=== PATIENT | female | born 1935 | race Caucasian/White ===

== ENCOUNTER 2023-07-31 23:31 | Emergency (ER) | payer MEDICARE, OTHER ==
[~2023-07-31] VITALS: Ht 162.6 cm; Wt 61.2 kg
[2023-08-01] MEDS ORDERED: MORPHINE SULFATE 2 MG/1 ML DISP.SYRIN ONE (00:25)
[2023-08-01] MEDS ORDERED: LORAZEPAM 2 MG/1 ML VIAL ONE (00:26)
[2023-08-01] MEDS: LORAZEPAM 2 MG/1 ML VIAL IV ONE (00:31)
[2023-08-01] MEDS: MORPHINE SULFATE 2 MG/1 ML DISP.SYRIN IV ONE (00:32)
[2023-08-01 00:40] LABS: RED CELL DISTRIBUTION WIDTH 15.2 % (12.3-17.7)
[2023-08-01 00:49] LABS: BASOPHILS # (AUTO) 0.1 K/UL (0.0-0.2); BASOPHILS % (AUTO) 0.9 % (0.0-2.0); DIFFERENTIAL COMMENT 0; EOSINOPHILS # (AUTO) 0.1 K/uL (0.0-0.7); EOSINOPHILS % (AUTO) 1.1 % (0.0-7.0); HEMATOCRIT 34.8 % (31.2-41.9); LYMPHOCYTES # (AUTO) 2.8 K/uL (0.8-4.8); MEAN CORPUSCULAR HEMOGLOBIN 31.7 uug (24.7-32.8); MEAN CORPUSCULAR HGB CONC 35 g/dL (32.3-35.6); MEAN CORPUSCULAR VOLUME 92.1 fL (75.5-95.3); MONOCYTES # (AUTO) 0.6 K/uL (0.1-1.30); NEUTROPHILS # (AUTO) 5.9 K/uL (1.8-8.9); PLATELET COUNT (AUTO) 302 K/uL (179-408); RED BLOOD CELL COUNT(AUTO) 3.78 MIL/uL (3.63-4.92); WHITE BLOOD COUNT (AUTO) 9.5 K/uL (3.8-11.8)
[2023-08-01 00:50] LABS: CALCIUM 10.1 mg/dL (8.5-10.1); CARBON DIOXIDE 26 mmol/L (21-32); CHLORIDE 107 mmol/L (98-107); CREATININE 1.2 mg/dL (0.6-1.3); GLUCOSE 115 mg/dL (74-106); POTASSIUM 3.9 mmol/L (3.5-5.1); SODIUM SERUM 145 mmol/L (136-145); UREA NITROGEN, BLOOD 31 mg/dL (7-18)
[2023-08-01 01:03] LABS: ALANINE AMINOTRANSFERASE 31 U/L (14-59); ALBUMIN 3.5 g/dL (3.4-5.0); ALKALINE PHOSPHATASE 66 U/L (50-136); ASPARTATE AMINOTRANSFERASE 18 U/L (15-37); BILIRUBIN,TOTAL 0.5 mg/dL (0.2-1.0); NT-PRO BNP 597 pg/mL (0-125); TOTAL PROTEIN, SERUM 7.7 g/dL (6.4-8.2)
[2023-08-01 03:30] LABS: *BILIRUBIN,URIN NEGATIVE (NEGATIVE); *BLOOD, URINE NEGATIVE (NEGATIVE); *CLARITY,URINE CLEAR (CLEAR); *COLOR,URINE YELLOW (YELLOW); *KETONES,URINE NEGATIVE (NEGATIVE); *PROTEIN,URINE NEGATIVE (NEGATIVE); *UROBILINOGEN,URINE 0.2 E.U./dl (NORMAL); LEUKOCYTE ESTERASE ,URINE 1+ (NEGATIVE); NITRITE, URINE NEGATIVE (NEGATIVE); PH,URINE 5.5 (5.0-8.0); UGLUCOSE NEGATIVE (NEGATIVE)
[2023-08-01 04:53] LABS: BACTERIA,URINE FEW /HPF (NONE SEEN); RBC,URINE 0-3 /HPF (0-3); SQUAMOUS EPITHELIAL CELL,UR MODERATE /HPF (NONE SEEN)
[2023-08-01] MEDS ORDERED: CEFTRIAXONE /D5W 50ML IVPB **ER PYXIS IV ONE (05:43)
[2023-08-01] MEDS: CEFTRIAXONE 1 G in IV DEXTROSE 5% 50 ML IV ONE (05:55)
[2023-08-01] MEDS ORDERED: NEBI5TAB8 PO (06:22)
[2023-08-01] MEDS ORDERED: PITA2TAB PO (06:22)
[2023-08-01] MEDS ORDERED: LEVO50TA8 PO (06:22)
[2023-08-01] MEDS ORDERED: GABA-532 PO (06:22)
[2023-08-01] MEDS ORDERED: HYDR100T27 PO (06:22)
[2023-08-01] MEDS ORDERED: FOSF3PAC GT (11:36)
[2023-08-01 12:14] VITALS: BP 154/78; O2SAT 100
== END 2023-08-01 12:15 | disposition home or self-care (01) ==
LOC: ER 23:34
DX: S22.42XA Multiple fractures of ribs, left side, initial encounter for closed fracture (principal); E03.9 Hypothyroidism, unspecified; N39.0 Urinary tract infection, site not specified; X58.XXXA Exposure to other specified factors, initial encounter; Y93.89 Activity, other specified; Y92.89 Other specified places as the place of occurrence of the external cause; Y99.8 Other external cause status
CPT/HCPCS: 99285; 93970; 70450; 96365; 96375; 80053; 81001; 83880; 85025; 87040; 84484; 36415; 71250; 74176; 83605; 87086; J0696; J2060; J2270; A4606; A4663; C1758